=== PATIENT | male | born 1985 | race Caucasian/White ===

== ENCOUNTER 2017-01-31 00:07 | Emergency (ER) | payer BC | END 2017-01-31 00:57 | disposition home or self-care (01) | LOC: ER 00:07 | DX: K02.9 Dental caries, unspecified (principal); F32.9 Major depressive disorder, single episode, unspecified; F41.9 Anxiety disorder, unspecified; F17.220 Nicotine dependence, chewing tobacco, uncomplicated; Z87.442 Personal history of urinary calculi; Z88.5 Allergy status to narcotic agent; Z88.8 Allergy status to other drugs, medicaments and biological substances ==

== ENCOUNTER 2017-02-02 21:35 | Emergency (ER) | payer BC | END 2017-02-03 01:50 | disposition home or self-care (01) | LOC: ER 21:35 | DX: R55 Syncope and collapse (principal); F41.9 Anxiety disorder, unspecified; F32.9 Major depressive disorder, single episode, unspecified; F17.220 Nicotine dependence, chewing tobacco, uncomplicated; Z87.442 Personal history of urinary calculi; Z98.890 Other specified postprocedural states; Z79.899 Other long term (current) drug therapy; Z88.5 Allergy status to narcotic agent; Z88.8 Allergy status to other drugs, medicaments and biological substances | CPT/HCPCS: 36415; 96360 ==